=== PATIENT | female | born 1985 | race Caucasian/White ===

== ENCOUNTER 2021-06-21 18:49 | Emergency (ER) | payer OTHER ==
[~2021-06-21] VITALS: Ht 145 cm; Wt 41.4 kg
[2021-06-21 18:54] VITALS: BP 124/75
[2021-06-21] MEDS ORDERED: ACETAMINOPHEN 500 MG TAB (TYLENOL) PO STA (18:57)
[2021-06-21] MEDS ORDERED: ONDANSETRON 4 MG (ZOFRAN) ORAL DISSOLVE TAB SL STA (18:57)
--- NOTE | 2021-06-21 18:57 | ED Head Injury ---
General Stated Complaint: FELL,HIT HEAD,VOMITTING History of Present Illness Date Seen by Provider: Jun 21, 2021 Time Seen by Provider: 18:55 Initial Comments Patient reports that she tripped and fell and she hit her head. She reports she had on concrete. This happens a couple hours ago and that she has been vomiting ever since. Patient is not sure she has a concussion or something worse and wants to be evaluated. Patient is currently in custody of law enforcement. Patient also reports that she has a headache but no other symptoms. Allergies and Home Medications Allergies Coded Allergies: codeine (Verified Allergy, Unknown, 06/21/21) Patient Home Medication List Home Medication List Reviewed: Yes Review of Systems Review of Systems Constitutional: No chills, No fever Eyes: Denies Blurred Vision, Denies Photophobia Ears, Nose, Mouth, Throat: no symptoms reported; denies ear pain Respiratory: No cough, No short of breath Cardiovascular: No chest pain, No palpitations Gastrointestinal: No abdominal pain, No diarrhea; nausea, vomiting Genitourinary: no symptoms reported Musculoskeletal: no symptoms reported Skin: no symptoms reported Psychiatric/Neurological: Headache Physical Exam Vital Signs Vital Signs - First Documented 06/21/21 18:54 Temp 36.7 Pulse 81 Resp 14 B/P (MAP) 124/75 (91) Pulse Ox 95 O2 Delivery Room Air Capillary Refill : Height, Weight, BMI Height: '" Weight: lbs. oz. kg; BMI Method: General Appearance: no apparent distress HEENT: PERRL/EOMI Neck: full range of motion Cardiovascular: normal peripheral pulses, regular rate, rhythm Respiratory: lungs clear, normal breath sounds, no respiratory distress Gastrointestinal: non tender, soft Psychiatric: alert, oriented x 3 Crainal Nerves: normal hearing, normal speech, PERRL Coordination/Gait: normal gait Motor/Sensory: no motor deficit, no sensory deficit Skin: normal color, warm/dry Progress/Results/Core Measures Results/Orders My Orders Orders - VITA ARCOS DO Ondansetron Oral Dissolve Tab (Zofran (06/21/21 18:57) Acetaminophen Tablet (Tylenol Tablet) (06/21/21 18:57) Ct Head Wo (06/21/21 18:57) Vital Signs/I&O 06/21/21 18:54 Temp 36.7 Pulse 81 Resp 14 B/P (MAP) 124/75 (91) Pulse Ox 95 O2 Delivery Room Air Diagnostic Imaging Diagonstic Imaging: Xray, CT Plain Films/CT/US/NM/MRI: head Comments Date of Exam:06/21/21 CT HEAD WO PROCEDURE: CT head without contrast. TECHNIQUE: Multiple contiguous axial images were obtained through the brain without the use of intravenous contrast. Auto Exposure Controls were utilized during the CT exam to meet ALARA standards for radiation dose reduction. INDICATION: Status post fall in shower, hit head. Pain CORRELATION: None FINDINGS: There is no midline shift or mass effect. The ventricles and sulci are unremarkable. No evidence for acute intracranial hemorrhage, abnormal extra-axial fluid collections or cerebral edema is present. The basilar cisterns are unremarkable. The bony calvarium is intact. The visualized paranasal sinuses and mastoid air cells are clear. IMPRESSION: Negative for acute traumatic intracranial abnormality. Reviewed: Reviewed by Me, Reviewed/Discussed Departure Impression Primary Impression: Concussion Qualified Codes: S06.0X0A - Concussion without loss of consciousness, initial encounter Additional Impression: Fall Qualified Codes: W19.XXXA - Unspecified fall, initial encounter Disposition: 01 HOME, SELF-CARE Condition: Stable Departure-Patient Inst. Patient Instructions: Concussion, Adult (DC) Add. Discharge Instructions: Tylenol or ibuprofen as needed for pain or headache Get plenty of rest, drink plenty of fluids VITA ARCOS DO Jun 21, 2021 18:57
--- NOTE | 2021-06-21 19:14 | Diagnostic Imaging Report ---
PROCEDURE: CT head without contrast. TECHNIQUE: Multiple contiguous axial images were obtained through the brain without the use of intravenous contrast. Auto Exposure Controls were utilized during the CT exam to meet ALARA standards for radiation dose reduction. INDICATION: Status post fall in shower, hit head. Pain CORRELATION: None FINDINGS: There is no midline shift or mass effect. The ventricles and sulci are unremarkable. No evidence for acute intracranial hemorrhage, abnormal extra-axial fluid collections or cerebral edema is present. The basilar cisterns are unremarkable. The bony calvarium is intact. The visualized paranasal sinuses and mastoid air cells are clear. IMPRESSION: Negative for acute traumatic intracranial abnormality. Dictated by: Dictated on workstation # [id number]
== END 2021-06-21 19:31 | disposition home or self-care (01) ==
LOC: ER FS 18:51
DX: S06.0X0A Concussion without loss of consciousness, initial encounter (principal); W01.198A Fall on same level from slipping, tripping and stumbling with subsequent striking against other object, initial encounter
CPT/HCPCS: 70450

== ENCOUNTER 2021-09-24 12:19 | Emergency (ER) | payer MEDICAID, OTHER ==
[~2021-09-24] VITALS: Ht 145 cm; Wt 56.6 kg
[2021-09-24] MEDS ORDERED: ACHD5005 PO ×2 (13:02→13:57)
[2021-09-24] MEDS ORDERED: DOXY100T2 PO ×2 (13:02→13:57)
--- NOTE | 2021-09-24 13:03 | ED Integumentary General ---
General Chief Complaint: Breast Complaints Stated Complaint: LEFT BREAST [facility] Nursing Triage Note: PT AMBULATORY TO ER. PT C/O POSSIBLE ABSCESS TO L BREAST, HX OF MRSA INFECTIONS Source: patient Exam Limitations: no limitations History of Present Illness Date Seen by Provider: Sep 24, 2021 Time Seen by Provider: 12:59 Initial Comments To ER with reports of a left breast abscess. History of MRSA infections. She was sent to ER from [facility] where she presented with this complaint. She had an ultrasound and a mammogram done today but does not know the results. Timing/Duration: constant Severity: moderate Associated Symptoms: denies symptoms Allergies and Home Medications Allergies Coded Allergies: codeine (Verified Allergy, Unknown, 06/21/21) Patient Home Medication List Home Medication List Reviewed: Yes Review of Systems Review of Systems Constitutional: see HPI EENTM: see HPI Cardiovascular: no symptoms reported Genitourinary: no symptoms reported Musculoskeletal: no symptoms reported Skin: see HPI Psychiatric/Neurological: No Symptoms Reported Endocrine: No Symptoms Reported Past Yzxszvs-Bbluif-Zvbvfy Hx Patient Social History Tobacco Use?: No Use of E-Cig and/or Vaping dev: Yes Substance use?: No Alcohol Use?: No Pt feels they are or have been: No Immunizations Up To Date First/Initial COVID19 Vaccinat: JUL 2021 COVID19 Vaccine [employer]oles[employer]: [employer] Past Medical History Last Menstrual Period: Aug 15, 2021 Physical Exam Vital Signs Vital Signs - First Documented 09/24/21 12:26 Temp 36.2 Pulse 81 Resp 20 B/P (MAP) 103/70 (81) Pulse Ox 96 O2 Delivery Room Air Capillary Refill : General Appearance: WD/WN, no apparent distress HEENT: PERRL/EOMI, normal ENT inspection Neck: non-tender, full range of motion Respiratory: no respiratory distress, no accessory muscle use Gastrointestinal: normal bowel sounds, non tender, soft Extremities: normal range of motion, non-tender Neurologic/Psychiatric: alert, normal mood/affect, oriented x 3 Skin: normal color, warm/dry Skin Problem Location: other Skin Problem Character: abscess, other (Small pea-sized abscess to the 9 o'clock position of the left areola. She is nipple retraction bilaterally but she states they have been like that since she was born. She will follow-up with [facility] in regards to the mammogram and the ultrasound results) Procedures/Interventions I&D : Blade Size: 11 Progress Anesthetized with lidocaine without epinephrine. Incised with an 11 blade scalpel. Small amount of purulent and firm sebaceous material expressed. No surrounding cellulitis changes. Progress/Results/Core Measures Results/Orders Vital Signs/I&O 09/24/21 12:26 Temp 36.2 Pulse 81 Resp 20 B/P (MAP) 103/70 (81) Pulse Ox 96 O2 Delivery Room Air Blood Pressure Mean: 81 Departure Communication (Admissions) She would like her prescription sent to [facility] and since they sent her here she states I will send her prescriptions there. As accompanied by 2 female nursing informatics analyst from [facility] during exam and procedure. Impression Primary Impression: Breast abscess Disposition: HOME, SELF-CARE Condition: Stable Departure-Patient Inst. Decision time for Depature: 13:01 Referrals: NO,LOCAL PHYSICIAN (PCP/Family) Primary Care Physician Patient Instructions: Abscess Incision and Drainage ED Add. Discharge Instructions: 1. Warm compresses to the area. Return to ER for any concerns. Follow-up with [facility] in regards to your ultrasound and mammogram results. All discharge instructions reviewed with patient and/or family. Voiced understanding. Scripts Hydrocodone/Acetaminophen (Hydrocodone-Acetamin 5-325 mg) 1 Each Tablet 1 TAB PO Q4H PRN for PAIN-MODERATE (5-7), #5 TAB Prov: ERNESTO PASTOR APRN 09/24/21 Doxycycline Hyclate (Doxycycline Hyclate) 100 Mg Tablet 100 MG PO BID, #14 TAB 0 Refills Prov: ERNESTO PASTOR APRN 09/24/21 ERNESTO PASTOR APRN Sep 24, 2021 13:03
[2021-09-24 13:09] VITALS: BP 103/70
[2021-09-29] MEDS ORDERED: ACHD5005 PO (12:54)
== END 2021-09-24 13:09 | disposition home or self-care (01) ==
LOC: EDUNIT# 12:19 → ER 12:23
DX: N61.1 Abscess of the breast and nipple (principal); Z86.14 Personal history of Methicillin resistant Staphylococcus aureus infection
CPT/HCPCS: 87070; 87205; 99282

== ENCOUNTER 2021-09-27 20:58 | Emergency (ER) | payer OTHER ==
[~2021-09-27] VITALS: Ht 146.1 cm; Wt 56.2 kg
[~2021-09-27 20:58] MED LIST: ACHD5005 PO; DOXY100T2 PO
[2021-09-27] MEDS ORDERED: HYDROcodone/APAP 5 MG/325 MG (LORTAB) TAB PO ONE (22:00)
--- NOTE | 2021-09-27 22:01 | ED Integumentary General ---
General Chief Complaint: Skin/Wound Problems Stated Complaint: MRSA ABSCESS Source: patient Exam Limitations: no limitations History of Present Illness Date Seen by Provider: Sep 27, 2021 Time Seen by Provider: 21:44 Initial Comments Patient to the ER by private conveyance from home with chief complaint that for 4 days she has had an infection in her left breast which is continuing to drain purulence. She was seen 4 days ago in the ER and had I&D and put on doxycycline which she did not moss picker and start taking until today because of finances. He said the pain is very great but she is not having any fevers nausea vomiting diarrhea. No history of immunocompromise. [facility] with done mammogram and ultrasound and she was to follow-up with him for results. Allergies and Home Medications Allergies Coded Allergies: codeine (Verified Allergy, Unknown, 06/21/21) Patient Home Medication List Home Medication List Reviewed: Yes Doxycycline Hyclate (Doxycycline Hyclate) 100 Mg Tablet, 100 MG PO BID Prescribed by: ERNESTO PASTOR on 09/24/21 9256 Hydrocodone/Acetaminophen (Hydrocodone-Acetamin 5-325 mg) 1 Each Tablet, 1 TAB PO Q4H PRN for PAIN-MODERATE (5-7) Prescribed by: ERNESTO PASTOR on 09/24/21 1807 Review of Systems Review of Systems Constitutional: No chills, No diaphoresis, No fever, No malaise EENTM: No ear discharge, No ear pain Respiratory: No cough, No short of breath Cardiovascular: No chest pain, No palpitations Gastrointestinal: No abdominal pain, No nausea Genitourinary: No discharge, No dysuria Musculoskeletal: No back pain, No joint pain Psychiatric/Neurological: Denies Anxiety, Denies Depressed All Other Systems Reviewed Negative Unless Noted: Yes Past Cpqnljo-Fscutq-Swyrgs Hx Patient Social History Tobacco Use?: No Use of E-Cig and/or Vaping dev: No Substance use?: No Immunizations Up To Date First/Initial COVID19 Vaccinat: JUL 2021 Physical Exam Vital Signs Capillary Refill : General Appearance: WD/WN, mild distress HEENT: PERRL/EOMI, pharynx normal Neck: full range of motion, normal inspection Cardiovascular: normal peripheral pulses, regular rate, rhythm Respiratory: lungs clear, normal breath sounds, no respiratory distress, no accessory muscle use Gastrointestinal: non tender, soft Extremities: non-tender, normal inspection Neurologic/Psychiatric: alert, normal mood/affect, oriented x 3 Skin: other (Left breast 9 o'clock position to the inverted nipple is a draining wound approximately 1 to 2 mm wide.) Procedures/Interventions I&D : Site: Left breast 9:00 to the nipple Progress Patient was very hesitant to want to have any lidocaine or needles placed in or around her breast. Cystic os was draining a thin, cloudy straw-colored fluid. There was no erythema and only a little bit of palpable fluctuance to the right of the office just under the areola at the 9 o'clock position of the left breas t. We were able to gently's express out a little bit of fluid and a small amount of white purulence. Put some gauze dressing on it after cleaning it with alcohol and gave her return precautions. Progress/Results/Core Measures Results/Orders My Orders Orders - MADY DAVID Hydrocodone/Apap 5/325 Tablet (Lortab 5 (09/27/21 22:00) Ketorolac Injection (Toradol Injection) (09/27/21 22:15) Ceftriaxone (Rocephin) (09/27/21 22:15) Lidocaine 1% Inj 20 Ml (Xylocaine 1% Inj (09/27/21 22:15) Lidocaine 1% Inj 20 Ml (Xylocaine 1% Inj (09/27/21 22:15) Medications Given in ED Current Medications Medications Dose Ordered Sig/Leonarda Route Start Time Stop Time Status Last Admin Dose Admin Acetaminophen/ Hydrocodone Bitart 1 ea ONCE ONCE PO 09/27/21 22:00 09/27/21 22:01 DC 09/27/21 22:11 1 EA Ceftriaxone Sodium 1,000 mg ONCE ONCE IM 09/27/21 22:15 09/27/21 22:16 DC 09/27/21 22:11 1,000 MG Ketorolac Tromethamine 60 mg ONCE ONCE IM 09/27/21 22:15 09/27/21 22:16 DC 09/27/21 22:11 60 MG Lidocaine HCl 2.1 ml ONCE ONCE INJ 09/27/21 22:15 09/27/21 22:16 DC 09/27/21 22:11 2.1 ML Lidocaine HCl 20 ml ONCE ONCE INJ 09/27/21 22:15 09/27/21 22:16 DC 09/27/21 22:12 20 ML Progress Progress Note #1: Time: 22:00 Progress Note Hydrocodone for pain, Rocephin shot and encouraged her to continue her antibiotics. Repeat I&D. Microbiology was reviewed which did not grow out any specific pathogen. Suspect it was a sebaceous cyst or similar epidermal inclusion cyst. Progress Note #2: Time: 22:31 Progress Note Aseptic vital signs. Patient appeared to be much more comfortable after the pain medication. We are able to drain the wound without incising it. I did offer to incise it as it would increase her chances of not having repeat infection and the patient declined at this time. Since it is draining this is okay and she agreed to start taking the antibiotics. The area of fluctuance is about the size of a espinosa nicole. The patient states that her mammogram and ultrasound were benign. Departure Impression Primary Impression: Breast abscess Disposition: HOME, SELF-CARE Condition: Stable Departure-Patient Inst. Decision time for Depature: 22:30 Referrals: [facility] [place],LOCAL PHYSICIAN (PCP) Primary Care Physician Patient Instructions: Skin Abscess Add. Discharge Instructions: Keep the wound clean with regular soap and water only. Apply dry clean gauze dressings at least daily or more often if it becomes soiled until it stops draining. Continue taking the doxycycline twice a day with food as prescribed until completion. Return to the ER for increased swelling pain or other worrisome symptoms such as fever or vomiting. Tylenol 1000 mg every 8 hours as necessary for pain. Ibuprofen 800 mg every 8 hours as necessary for pain. All discharge instructions reviewed with patient and/or family. Voiced understanding. Scripts Hydrocodone/Acetaminophen (Hydrocodone-Acetamin 5-325 mg) 1 Each Tablet 1 TAB PO Q6H PRN for PAIN-MODERATE (5-7), #8 TAB 0 Refills Prov: MADY DAVID 09/27/21 MADY DAVID Sep 27, 2021 22:01
[2021-09-27] MEDS ORDERED: KETOROLAC 60 MG/2 ML VIAL IM ONE (22:15)
[2021-09-27] MEDS ORDERED: LIDOCAINE 1% INJ 20 ML 20 ML VIAL INJ ONE ×2 (22:15)
[2021-09-27] MEDS ORDERED: cefTRIAXone 1,000 MG VIAL IM ONE (22:15)
[2021-09-27] MEDS ORDERED: ACHD5005 PO (22:33)
[2021-09-27 22:35] VITALS: BP 114/65
[2021-09-29] MEDS ORDERED: ACHD5005 PO (12:54)
== END 2021-09-27 22:37 | disposition home or self-care (01) ==
LOC: EDUNIT# 20:58 → ER 20:59
DX: N61.1 Abscess of the breast and nipple (principal)
CPT/HCPCS: 99284

== ENCOUNTER 2021-10-16 15:17 | Emergency (ER) | payer OTHER ==
[~2021-10-16] VITALS: Ht 145 cm; Wt 56.2 kg
[2021-10-16] MEDS ORDERED: CEFD300C3 PO (15:58)
--- NOTE | 2021-10-16 15:58 | ED Integumentary General ---
General Chief Complaint: Skin/Wound Problems Stated Complaint: MRSA WOUND Nursing Triage Note: PT PRESENTS TO ED WITH COMPLAINTS OF L BREAST ABCESS Source: patient Exam Limitations: no limitations (ERNESTO PASTOR APRN) History of Present Illness Date Seen by Provider: Oct 16, 2021 Time Seen by Provider: 15:55 Initial Comments To ER with recurrent left breast abscess. This is been drained in the emergency room twice but she says several times previous to that as well. She is had a little nipple drainage as well. Timing/Duration: getting worse Severity: moderate Associated Symptoms: denies symptoms (ERNESTO PASTOR APRN) Allergies and Home Medications Allergies Coded Allergies: codeine (Verified Allergy, Unknown, 06/21/21) Patient Home Medication List Home Medication List Reviewed: Yes (ERNESTO PASTOR APRN) Cefdinir (Cefdinir) 300 Mg Capsule, 300 MG PO BID Prescribed by: ERNESTO PASTOR on 10/16/21 1558 Doxycycline Hyclate (Doxycycline Hyclate) 100 Mg Tablet, 100 MG PO BID Prescribed by: ERNESTO PASTOR on 09/24/21 1357 Hydrocodone/Acetaminophen (Hydrocodone-Acetamin 5-325 mg) 1 Each Tablet, 1 TAB PO Q4H PRN for PAIN-MODERATE (5-7) Prescribed by: ERNESTO PASTOR on 09/24/21 1357 Hydrocodone/Acetaminophen (Hydrocodone-Acetamin 5-325 mg) 1 Each Tablet, 1 TAB PO Q6H PRN for PAIN-MODERATE (5-7) Prescribed by: ERNESTO PASTOR on 09/29/21 1255 Review of Systems Review of Systems Constitutional: see HPI EENTM: see HPI Respiratory: no symptoms reported Cardiovascular: no symptoms reported Genitourinary: no symptoms reported Musculoskeletal: no symptoms reported Skin: see HPI Psychiatric/Neurological: No Symptoms Reported Endocrine: No Symptoms Reported (ERNESTO PASTOR APRN) Past Pyubixk-Dinxlt-Eoxrpu Hx Patient Social History Tobacco Use?: No Use of E-Cig and/or Vaping dev: Yes Use of E-Cig and/or Vaping Juvencio: Current Everyday User Substance use?: No Alcohol Use?: No Pt feels they are or have been: No (ERNESTO PASTOR APRN) Immunizations Up To Date First/Initial COVID19 Vaccinat: JUL 2021 Second COVID19 Vaccination Jose: JUL 2021 Third COVID19 Vaccination Date: JUL 2021 COVID19 Vaccine Medical Scientific Liaison: [employer] (ERNESTO PASTOR APRN) Past Medical History Surgery/Hospitalization HX: PMH: MPD, BPD, SOCIAL ANXIETY SX: KAYLA, C-SEC (ERNESTO PASTOR APRN) Physical Exam Vital Signs Vital Signs - First Documented 10/16/21 15:45 Temp 36.8 Pulse 90 Resp 16 B/P (MAP) 109/75 (86) Pulse Ox 94 (BRYANT UPTON MD) Vital Signs Capillary Refill : Less Than 3 Seconds (ERNESTO PASTOR APRN) General Appearance: WD/WN, no apparent distress Neck: non-tender, full range of motion Respiratory: no respiratory distress, no accessory muscle use Gastrointestinal: normal bowel sounds, non tender Neurologic/Psychiatric: alert, normal mood/affect, oriented x 3 Skin: normal color, warm/dry Skin Problem Character: abscess (There is a pea-sized area of fluctuance at the 9 o'clock position left breast. When I press this there is a little purulent drainage from the nipple itself. Minimal surrounding erythema.) (ERNESTO PASTOR APRN) Progress/Results/Core Measures Results/Orders Medications Given in ED Current Medications Medications Dose Ordered Sig/Leonarda Route Start Time Stop Time Status Last Admin Dose Admin Acetaminophen/ Hydrocodone Bitart 1 ea ONCE ONCE PO 10/16/21 16:00 10/16/21 16:01 DC 10/16/21 15:59 1 EA Ceftriaxone Sodium 1,000 mg ONCE ONCE IM 10/16/21 16:00 10/16/21 16:01 DC 10/16/21 15:59 1,000 MG Lidocaine HCl 2.1 ml ONCE ONCE INJ 10/16/21 16:00 10/16/21 16:01 DC 10/16/21 15:59 2.1 ML (BRYANT UPTON MD) Vital Signs/I&O 10/16/21 10/16/21 15:45 16:24 Temp 36.8 36.8 Pulse 90 76 Resp 16 16 B/P (MAP) 109/75 (86) 102/70 Pulse Ox 94 97 (BRYANT UPTON MD) Blood Pressure Mean: 86 Departure Communication (Admissions) 8554-Based on the last wound culture from just a few months ago I will use a third-generation cephalosporin for 2 weeks. Rare Actinobaculum schaalii Studies show celina Actinobaculum schaalii is resistant to ciprofloxacin and trimethoprim-sulfamethoxazole. It is susceptible to penicillin, 3rd generation cephalosporins, aminoglycosides, linezolid, and nitrofurnatoin. Prolonged therapy for up to 2 weeks has been recommended. 1557-I did the exam and incision and drainage with Fernanda HERBERT at the bedside. Anesthetized with 0.5 mL of 1% lidocaine without epinephrine. Made an incision with an 11 blade scalpel. Moderate amount of purulent material expressed. Culture collected and sent to lab. Covered with gauze. (ERNESTO PASTOR APRN) Impression Primary Impression: Breast abscess Disposition: HOME, SELF-CARE Condition: Stable Departure-Patient Inst. Decision time for Depature: 15:57 (ERNESTO PASTOR APRN) Referrals: [facility] (PCP/Family) Primary Care Physician Patient Instructions: Skin Abscess Add. Discharge Instructions: 1. Warm compresses to the area. Call one of the surgeons listed to make an appointment to be seen for follow-up. Antibiotic as directed. All discharge instructions reviewed with patient and/or family. Voiced understanding. Scripts Cefdinir (Cefdinir) 300 Mg Capsule 300 MG PO BID, #28 CAP 0 Refills Prov: ERNESTO PASTOR APRN 10/16/21 ATTENDING PHYSICIAN NOTE: I was physically present as attending physician in the emergency department during the care of this patient, but I was not directly involved in the decision making or delivery of care for this patient. (BRYANT UPTON MD) ERNESTO PASTOR APRN Oct 16, 2021 15:58 BRYANT UPTON MD Oct 16, 2021 20:22
[2021-10-16] MEDS ORDERED: HYDROcodone/APAP 5 MG/325 MG (LORTAB) TAB PO ONE (16:00)
[2021-10-16] MEDS ORDERED: LIDOCAINE 1% INJ 20 ML 20 ML VIAL INJ ONE (16:00)
[2021-10-16] MEDS ORDERED: cefTRIAXone 1,000 MG VIAL IM ONE (16:00)
[2021-10-16 16:24] VITALS: BP 102/70
== END 2021-10-16 16:23 | disposition home or self-care (01) ==
LOC: EDUNIT# 15:17 → ER 15:18
DX: N61.1 Abscess of the breast and nipple (principal); F17.290 Nicotine dependence, other tobacco product, uncomplicated
CPT/HCPCS: 10060; 87070; 87077; 87186; 87205

== ENCOUNTER 2021-11-10 15:27 | Emergency (ER) | payer MEDICAID, OTHER ==
[~2021-11-10] VITALS: Ht 145 cm; Wt 58.9 kg
[~2021-11-10 15:27] MED LIST changes: +CEFD300C3 PO
[2021-11-10 15:39] VITALS: BP 136/99
[2021-11-10] MEDS ORDERED: ACETAMINOPHEN 500 MG TAB (TYLENOL) PO STA (16:31)
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
[2021-11-10] MEDS ORDERED: TETANUS,DIPTH,PERTUSS P/F (BOOSTRIX) 0.5 ML VIAL IM ONE (16:45)
== END 2021-11-10 17:05 | disposition home or self-care (01) ==
LOC: EDUNIT# 15:27 → ER 15:29
DX: T23.171A Burn of first degree of right wrist, initial encounter (principal); T23.101A Burn of first degree of right hand, unspecified site, initial encounter; Z23 Encounter for immunization; X10.2XXA Contact with fats and cooking oils, initial encounter
CPT/HCPCS: 90715; 99284